=== PATIENT | male | born 1985 | race Caucasian/White ===

== ENCOUNTER 2018-09-30 17:24 | Emergency (ER) | payer SELFPAY ==
[2018-09-30 17:43] VITALS: BP 145/89
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
== END 2018-09-30 20:10 | disposition home or self-care (01) ==
LOC: ER 17:24
DX: S62.304A Unspecified fracture of fourth metacarpal bone, right hand, initial encounter for closed fracture (principal); M25.571 Pain in right ankle and joints of right foot; F17.200 Nicotine dependence, unspecified, uncomplicated; Y04.0XXA Assault by unarmed brawl or fight, initial encounter
CPT/HCPCS: 99283

== ENCOUNTER 2019-07-18 20:55 | Emergency (ER) | payer BC, OTHER ==
[2019-07-18 21:06] VITALS: BP 150/87
[2019-07-19] MEDS ORDERED: NORMAL SALINE 1000 ML 1,000 ML IV ONE (01:11)
--- NOTE | 2019-07-19 01:13 | ER Document Report ---
ED General - General Chief Complaint: Medication Refill Stated Complaint: MEDICATION REFILL Time Seen by Provider: 07/19/19 01:01 Primary Care Provider: CHRISTINA,MISSY [Primary Care Provider] - Follow up as needed Notes: Patient is a 34-year-old male with a history of type 1 diabetes that comes to the emergency department for chief complaint of running out of insulin. He states he needs a refill of NovoLog. He uses this for his insulin pump. He has not had insulin since yesterday. He states he did not need anything all day to avoid elevated glucose. He denies feeling sick including nausea, vomiting, dizziness, visual changes, or any other symptoms at this time. He states he usually gets his medications from the [facility] and he called them for the past couple of days but he has not received anything yet. TRAVEL OUTSIDE OF THE [place] IN LAST 30 DAYS: No - Related Data Allergies/Adverse Reactions: No Known Allergies Allergy (Verified 09/30/18 17:25) Past Medical History - General Information source: Patient - Social History Smoking Status: Never Smoker Frequency of alcohol use: None Drug Abuse: None Lives with: Alone Family History: Reviewed & Not Pertinent - Past Medical History Cardiac Medical History: Denies: Hx Coronary Artery Disease, Hx Heart Attack, Hx Hypertension, Hx Pulmonary Embolism Pulmonary Medical History: Reports: Hx Asthma - as child Denies: Hx Bronchitis, Hx COPD, Hx Pneumonia, Hx Respiratory Failure, Hx Sleep Apnea, Hx Tuberculosis Neurological Medical History: Denies: Hx Cerebrovascular Accident, Hx Seizures Endocrine Medical History: Reports: Hx Diabetes Mellitus Type 1. Denies: Hx Gra ves' Disease, Hx Hyperthyroidism, Hx Hypothyroidism Renal/ Medical History: Denies: Hx Peritoneal Dialysis Malignancy Medical History: Denies Hx Lung Cancer Musculoskeletal Medical History: Reports Hx Arthritis - back, Denies Hx Fibromyalgia, Denies Hx Muscular Dystrophy, Denies Hx Systemic Lupus Erythematosus Traumatic Medical History: Denies: Hx Fractures Past Surgical History: Denies: Hx Appendectomy, Hx Bowel Surgery, Hx Cholecystectomy, Hx Coronary Artery Bypass Graft, Hx Gastric Bypass Surgery, Hx Herniorrhaphy, Hx Pacemaker, Hx Tonsillectomy - Immunizations Hx Diphtheria, Pertussis, Tetanus Vaccination: No - ? Review of Systems - Review of Systems Constitutional: No symptoms reported EENT: No symptoms reported Cardiovascular: No symptoms reported Respiratory: No symptoms reported Gastrointestinal: No symptoms reported Genitourinary: No symptoms reported Male Genitourinary: No symptoms reported Musculoskeletal: No symptoms reported Skin: No symptoms reported Hematologic/Lymphatic: No symptoms reported Neurological/Psychological: No symptoms reported Physical Exam - Vital signs Vitals: Temp Pulse Resp BP 98.3 F 86 16 150/87 H 07/18/19 21:04 07/18/19 21:04 07/18/19 21:04 07/18/19 21:04 - Notes Notes: GENERAL: Alert, interacts well. No acute distress. HEAD: Normocephalic, atraumatic. EYES: Pupils equal, round, and reactive to light. Extraocular movements intact. ENT: Oral mucosa moist, tongue midline. Oropharynx unremarkable. Airway patent. LUNGS: Clear to auscultation bilaterally, no wheezes, rales, or rhonchi. No respiratory distress. HEART: Regular rate and rhythm. No murmur ABDOMEN: Soft, non-tender. Non-distended. Bowel sounds present in all 4 quadra nts. GENITOURINARY: Deferred EXTREMITIES: Moves all 4 extremities spontaneously. No edema, normal radial and dorsalis pedis pulses bilaterally. No cyanosis. BACK: no cervical, thoracic, lumbar midline tenderness. No saddle anesthesia, normal distal neurovascular exam. Moves all extremities in full range of motion. NEUROLOGICAL: Alert and oriented x3. Normal speech. Cranial nerves II through XII grossly intact. PSYCH: Normal affect, normal mood. SKIN: Warm, dry, normal turgor. No rashes or lesions noted. Course - Re-evaluation Re-evalutation: Patient states he is out of insulin for over a day, states he has not been eating to try to avoid hyperglycemia. Labs performed to rule out hyperglycemia with acidosis, no acidosis is seen, blood glucose is only 199. He was given insulin, IV fluids, and refills. He has close primary care follow-up. I discussed return precautions. Patient states appreciation and agreement. - Vital Signs Vital signs: Temp Pulse Resp BP Pulse Ox 98.3 F 86 16 150/87 H 07/18/19 21:04 07/18/19 21:04 07/18/19 21:04 07/18/19 21:04 - Laboratory Result Diagrams: 07/19/19 01:20 Laboratory results interpreted by me: 07/19/19 01:20 Sodium 136.9 L Glucose 199 H Discharge - Discharge Clinical Impression: Has run out of medications, Hyperglycemia Condition: Stable Disposition: HOME, SELF-CARE Additional Instructions: Feeling take your medications as prescribed. Follow-up with your primary care for additional management. Come back if you are worse including nausea, vomiting, dizziness, or if eva ething is not right. Prescriptions: Insulin Aspart [Novolog Insulin 100 Unit/1 ml 10 ml] 1 unit SUBCUT .SLD SCALE #10 ml Forms: Return to Work, Elevated Blood Pressure Referrals: [facility] [Primary Care Provider] - Follow up as needed
[2019-07-19 01:44] LABS: VENOUS BLOOD BASE EXCESS 2.7 mmol/L; VENOUS BLOOD HCO3 28.5 mmol/L (20-32); VENOUS BLOOD PCO2 47.8 mmHg (35-63); VENOUS BLOOD PH 7.39 (7.30-7.42)
[2019-07-19 01:50] LABS: ANION GAP 9 (5-19); BLOOD UREA NITROGEN 16 mg/dL (7-20); CALCIUM 9.6 mg/dL (8.4-10.2); CARBON DIOXIDE 30 mmol/L (22-30); CHLORIDE 98 mmol/L (98-107); GLUCOSE 199 mg/dL (75-110); POTASSIUM 4.2 mmol/L (3.6-5.0)
[2019-07-19] MEDS ORDERED: INSULIN REG, HUMAN 100 UNIT/ML 3 ML VIAL (PYX) SUBCUT ONE ×2 (03:10→03:11)
== END 2019-07-19 03:27 | disposition home or self-care (01) ==
LOC: ER 20:55
DX: E10.65 Type 1 diabetes mellitus with hyperglycemia (principal); Z79.4 Long term (current) use of insulin
CPT/HCPCS: 99282; 96360; 36415; 80048; 82803; J1815; J7030